=== PATIENT | male | born 1945 | race Caucasian/White ===

== ENCOUNTER 2025-01-10 09:39 | Outpatient (AMB) | payer MEDICARE, OTHER, SELFPAY ==
--- NOTE | 2025-01-10 09:40 | A.PHYSOV ---
Vital Signs 01/10/25 09:42 Height 5 ft 7 in Weight 215 lb BMI 33.7 Intake Visit Reasons: BACK PAIN Intake Note: Patient is a 64 year old male here for a new patient visit. Patient presents with low back pain. Focuser Required: No Allergies lisinopril Allergy (Unknown, Verified 01/10/25 09:43) Unknown HPI Comments Details: Mr. Couch is a 79-year-old male seen in evaluation for low back pain with radiculopathy. Patient reports acute exacerbation of his symptoms over a month ago. Patient reports paresthesia primarily in the left lower extremity into the left great toe. He has been using codeine which was prescribed to him by me from February. He has been using the medication sparingly for severe breakthrough pain. Patient is requesting a refill. He has a pain level today of 7/10. He has been performing physician directed home exercise plan and using his medications as prescribed. He has also been using Tylenol. He denies any incontinence, saddle anesthesia urinary retention. FOR[facility], [facility] Surgical History (Updated 01/10/25 @ 09:46 by Pina Tiwari MA) H/O hernia repair H/O abdominal surgery Social History (Updated 01/07/25 @ 08:13 by Pina Tiwari MA) Alcohol intake: current Alcohol intake frequency: holidays/special occasions only Patient Tobacco Use Status: Never used Tobacco Use of substances other than those prescribed or required for medical reasons: Yes Substance Use Type: Marijuana Review of Systems Narrative Low back pain with radiculopathy. No incontinence, saddle anesthesia urinary retention. Physical Exam Exam Exam: Lumbar Spine: Examination of his lumbar spine, there is no visible swelling or deformity. He is tender to lower lumbar facets. He is otherwise nontender. Full range of motion of his lumbar spine. He does have increase in pain with loading. Special Tests: Lhermittes sign was negative Heel Toe walk is normal Left straight leg raise: Negative Right straight leg raise: Negative Special tests Shanique test is negative Ganslen's test is negative SI Joint compression test negative Jeramy test negative Piriformis stretch is negative Lower Extremities: Full range of motion bilateral lower extremities. No calf pain or edema. Neuro: Sensation: Intact to lower extremities bilaterally Strength L2 (Psoas): 5/5 on the left and 5/5 on the right. L3 (Quads): 5/5 on the left and 5/5 on the right. L4 (Ant tibialis): 5/5 on the left and 5/5 on the right. L5 (EHL) 5/5 on the left and 5/5 on the right. S1 (Gastroc): 5/5 on the left and 5/5 on the right. DTR L4: (Patellar) Left 1 Right 1 S1: (Achilles) Left 1 Right 1 Babinski Downgoing No pathologic clonus. No involuntary movement. Vital Signs: BMI result Body Mass Index 33.7 Assessment & Plan Assessment & Plan (1) Lumbar radiculopathy: Code(s): M54.16 - Radiculopathy, lumbar region Category: Medical (2) Lumbar spondylosis: Code(s): M47.816 - Spondylosis without myelopathy or radiculopathy, lumbar region Category: Medical Plan: Mr. Couch is a 79-year-old male seen in evaluation today for low back pain with radiculopathy. Patient has suffered acute exacerbation of his symptoms which are improving. Patient has codeine 30 mg as needed for severe breakthrough pain. Patient had his last refill in February of 2024. I will refill the medication today. I reviewed his mass pat are no red flags. He will not operate any heavy machinery while taking the medication. Follow-up with our office as needed. Plan Thank you for allowing me to participate in the care of your patient. Medications: New codeine sulfate Partial Fill upon patient request. 30 mg PO QID PRN 28 tabs 0RF diarrhea Coding Level of Care Code Tele Est Pt Level 3 (12239) Diagnoses Lumbar radiculopathy M54.16 Lumbar spondylosis M47.816
[2025-01-10 09:42] VITALS: BMI 33.7
== END 2025-01-10 10:50 | disposition home or self-care (01) ==
PROVIDERS: PCP Internal Medicine; Visit Provider Physician Assistant
DX: M54.16 Radiculopathy, lumbar region (principal); M47.816 Spondylosis without myelopathy or radiculopathy, lumbar region
CPT/HCPCS: 99213

== ENCOUNTER → 2025-01-10 09:39 | Outpatient (BNVA) | payer MEDICARE, SELFPAY | PROVIDERS: PCP Internal Medicine; Visit Provider Physician Assistant | DX: M54.16 Radiculopathy, lumbar region (principal); M47.816 Spondylosis without myelopathy or radiculopathy, lumbar region | CPT/HCPCS: 99212 ==